=== PATIENT | male | born 1935 | race Caucasian/White ===

== ENCOUNTER 2021-11-02 12:35 | Emergency (ER) | payer MEDICARE, OTHER ==
[~2021-11-02] VITALS: Ht 185.4 cm; Wt 75.0 kg
[2021-11-02 12:38] VITALS: BP 131/64
[2021-11-02] MEDS ORDERED: normal saline 1000ML IV soln IVB ONE (12:55)
[2021-11-02 13:29] LABS: BASOPHILS % (AUTO) 0.2 % (0-1); EOSINOPHILS % (AUTO) 0 % (0-6); HEMATOCRIT 41.8 % (42.0-52.0); LYMPHOCYTES # (AUTO) 0.6 X10'3 (1.1-4.8); LYMPHOCYTES % (AUTO) 11.5 % (21-51); MEAN CORPUSCULAR HEMOGLOBIN 30.9 PG (27.0-31.0); MEAN CORPUSCULAR HGB CONC 33.4 g/dL (33.0-36.5); MEAN CORPUSCULAR VOLUME 92.6 FL (78-98); MEAN PLATELET VOLUME 7.5 FL (7.4-10.4); MONOCYTES # (AUTO) 0.6 X10'3 (0-0.9); MONOCYTES % (AUTO) 11.8 % (2-12); NEUTROPHILS % (AUTO) 76.5 % (42-75); PLATELET COUNT 157 X10'3 (140-440); RED BLOOD COUNT 4.52 X10'6 (4.70-6.10); RED CELL DISTRIBUTION WIDTH 12.8 % (11.5-14.5); WHITE BLOOD COUNT 5.3 X10'3 (4.5-11.0)
[2021-11-02 13:47] LABS: ALANINE AMINOTRANSFERASE 32 U/L (12-78); ALBUMIN 3.5 G/DL (3.4-5.0); ALBUMIN/GLOBULIN RATIO 0.9 (1.1-1.5); ALKALINE PHOSPHATASE 46 IU/L (46-116); ANION GAP 9 (8-16); ASPARTATE AMINO TRANSFERASE 22 U/L (10-37); BILIRUBIN,TOTAL 0.5 MG/DL (0.1-1.0); BLOOD UREA NITROGEN 22 MG/DL (7-18); CHLORIDE 103 MMOL/L (99-107); CREATININE 1.16 MG/DL (0.60-1.10); GLUCOSE 105 MG/DL (70-104); POTASSIUM 4.3 MMOL/L (3.5-5.1); SODIUM 142 MMOL/L (135-145); TOTAL PROTEIN 7.3 G/DL (6.4-8.2); eGFR 60 ML/MIN
[2021-11-02] MEDS ORDERED: SOTROVIMAB 500mg injection 500 MG in normal saline 100ml IV soln 100 ML IV ONE (13:50)
[2021-11-02 14:47] LABS: CLARITY,URINE CLEAR (Clear); COLOR,URINE YELLOW (Yellow); GLUCOSE, URINE NEGATIVE (Neg); KETONES,URINE NEGATIVE (Neg); LEUKOCYTE ESTERASE ,URINE NEGATIVE (Neg); NITRITES, URINE NEGATIVE (Neg); OCCULT BLOOD,URINE NEGATIVE (Neg); PH,URINE 5.5 (4.8-8.0); PROTEIN,URINE TRACE mg/dl (Neg); UROBILINOGEN,URINE 0.2 E.U/dL (0.2-1.0)
[2021-11-02 14:52] LABS: UA COLLECTION TYPE CLN CATCH MIDSTREAM
[2021-11-02 14:53] LABS: BACTERIA,URINE FEW /HPF (Neg); RBC,URINE NONE SEEN /HPF (0-2); WBC,URINE 0-4 /HPF (0-4)
[2021-11-02 14:54] LABS: COARSE GRANULAR CAST 0-3 /LPF (NEGATIVE); FINE GRANULAR CAST 0-3 /LPF (NEGATIVE); MUCUS STRANDS MANY /LPF (Neg); SQUAMOUS EPITHELIAL CELL,UR NONE SEEN /LPF (FEW)
== END 2021-11-02 16:22 | disposition home or self-care (01) ==
LOC: ER 12:37
DX: U07.1 COVID-19 (principal); R42 Dizziness and giddiness; R05.9 Cough, unspecified; R53.1 Weakness; E78.00 Pure hypercholesterolemia, unspecified; Z98.890 Other specified postprocedural states; Z88.6 Allergy status to analgesic agent; Z88.8 Allergy status to other drugs, medicaments and biological substances
CPT/HCPCS: 36415; 70450; 71045; 80053; 81001; 83605; 85025; 87040; 87635; 93005; 96360; 99285; C9803; J3490; J7030; M0247; Q0247

== ENCOUNTER 2022-11-15 21:14 | Emergency (ER) | payer MEDICARE, OTHER ==
[~2022-11-15] VITALS: Ht 182.9 cm; Wt 79.5 kg
[~2022-11-15 21:14] MED LIST: ASPI-611 PO
--- NOTE | 2022-11-15 22:42 | NUR ---
Procedure explained to tigist. Patient gave verbal consent; he is unable to sign R/T weakness.
[2022-11-15] MEDS ORDERED: propofol 10mg/ml 20ml vial IV STA (22:51)
[2022-11-16 00:26] VITALS: BP 133/73
--- NOTE | 2022-11-16 00:33 | NUR ---
[facility]
== END 2022-11-16 02:16 | disposition home or self-care (01) ==
LOC: ER 21:15
DX: M25.552 Pain in left hip (principal); E78.00 Pure hypercholesterolemia, unspecified; Z88.5 Allergy status to narcotic agent; Z88.6 Allergy status to analgesic agent
CPT/HCPCS: 27265; 73502; 94760; 99152; 99153; 99285; J7030

== ENCOUNTER 2022-11-18 05:36 | Inpatient (IN) | payer MEDICARE, OTHER ==
[~2022-11-18] VITALS: Ht 185.4 cm; Wt 100.0 kg
--- NOTE | 2022-11-18 07:25 | NUR ---
Condom cath placed
--- NOTE | 2022-11-18 07:40 | NUR ---
pt experiencing runs of 5-6 PVCs, monitor strip printed and Dr Rojas notified. No new orders. Will continue to monitor.
[2022-11-18 07:49] LABS: BASOPHILS # (AUTO) 0.1 X10'3 (0-0.2); BASOPHILS % (AUTO) 0.7 % (0-1); EOSINOPHILS # (AUTO) 0.1 X10'3 (0-0.9); EOSINOPHILS % (AUTO) 1.2 % (0-6); HEMATOCRIT 36.4 % (42.0-52.0); HEMOGLOBIN 11.9 g/dl (14.0-17.9); MEAN CORPUSCULAR HEMOGLOBIN 30.6 PG (27.0-31.0); MEAN CORPUSCULAR HGB CONC 32.7 g/dL (33.0-36.5); MEAN CORPUSCULAR VOLUME 93.6 FL (78-98); MEAN PLATELET VOLUME 7.2 FL (7.4-10.4); MONOCYTES # (AUTO) 0.7 X10'3 (0-0.9); MONOCYTES % (AUTO) 7.9 % (2-12); NEUTROPHILS # (AUTO) 6.8 X10'3 (1.8-7.7); NEUTROPHILS % (AUTO) 78.2 % (42-75); PLATELET COUNT 381 X10'3 (140-440); RED BLOOD COUNT 3.89 X10'6 (4.70-6.10); RED CELL DISTRIBUTION WIDTH 13.7 % (11.5-14.5); WHITE BLOOD COUNT 8.7 X10'3 (4.5-11.0)
[2022-11-18 07:59] LABS: APTT 27 SECONDS (22-32)
[2022-11-18 08:02] LABS: ALANINE AMINOTRANSFERASE 22 U/L (12-78); ALBUMIN 2.9 G/DL (3.4-5.0); ALBUMIN/GLOBULIN RATIO 0.8 (1.1-1.5); ALKALINE PHOSPHATASE 76 IU/L (46-116); ANION GAP 3 (8-16); ASPARTATE AMINO TRANSFERASE 21 U/L (10-37); BILIRUBIN,TOTAL 0.8 MG/DL (0.1-1.0); BLOOD UREA NITROGEN 14 MG/DL (7-18); BUN/CREATININE RATIO 17.9 (5.4-32.0); CALCIUM 8.9 MG/DL (8.5-10.1); CHLORIDE 104 MMOL/L (99-107); CREATININE 0.78 MG/DL (0.60-1.10); GLUCOSE 97 MG/DL (70-104); POTASSIUM 3.3 MMOL/L (3.5-5.1); SODIUM 142 MMOL/L (135-145); TOTAL CARBON DIOXIDE 35.1 MMOL/L (24-32); TOTAL PROTEIN 6.4 G/DL (6.4-8.2); eGFR > 90 ML/MIN
[2022-11-18 09:04] LABS: CLARITY,URINE CLEAR (Clear); COLOR,URINE YELLOW (Yellow); GLUCOSE, URINE NEGATIVE (Neg); KETONES,URINE NEGATIVE (Neg); LEUKOCYTE ESTERASE ,URINE NEGATIVE (Neg); NITRITES, URINE NEGATIVE (Neg); OCCULT BLOOD,URINE NEGATIVE (Neg); PH,URINE 6.5 (4.8-8.0); PROTEIN,URINE NEGATIVE (Neg); UA COLLECTION TYPE CLN CATCH MIDSTREAM
[2022-11-18] MEDS ORDERED: mag hydrox/Alum hydrox/simeth 30ml oral suspension PO PRN (11:30)
[2022-11-18] MEDS: dextrose 5%-1/2 normal saline 1,000 ML IV SCH ×2 (12:00→21:30)
--- NOTE | 2022-11-18 12:20 | NUR ---
gave fluids per order, did accucheck 91. Pt turned and linens changed from urine. condom cath was not on pt. Pt reports no pain, very sleepy. Answered that he his name with a J and his daughter heraclio. Pt left leg immobilizer in pain, heel elevated. room temp up, warm blankets, socks placed. Put pt back on monitors.
--- NOTE | 2022-11-18 12:28 | NUR ---
PAGE TO DR. BERMEO WITH UPDATE AND FOR DIET ORDER. PAGER ID: [phone] MESSAGE: ER BED #[id number]. PATIENT WILL BE GETTING BED ON SURGICAL UNIT. WE NEED DIET ORDER, PLEASE. THANK YOU, PILY EXT. [id number]
--- NOTE | 2022-11-18 13:30 | NUR ---
Patient in room ED 3. I have received report from Kristy in the ED and had the opportunity to ask questions and assume patient care.
--- NOTE | 2022-11-18 13:54 | NUR ---
NURSING VIVIANA EMERY CONFIRMED NO SURGERY TODAY. POSSIBLY TOMORROW. PT FAMILY RAFAEL UPDATED PT BEING MOVED TO SURGICAL FLOOR, GIVEN NUMBERS. SHE REPORTS AT REHAB PT BARELY TAKES TWO BITES OF FOOD OR DRINKS. PT SOMETIMES PT SAYS HES HUNGRY AND WANTS TO EAT. PT IS A FULL CODE.
--- NOTE | 2022-11-18 13:57 | NUR ---
CALLED DR. BERMEO. PUT PT ON FULL LIQUID DIET, AND NPO AFTER MIDNIGHT.
--- NOTE | 2022-11-18 14:01 | NUR ---
NOTIFIED DR. BERMEO THAT PT NOT GOING TO SURGERY TODAY BC THERE IS NO OR STAFF.
--- NOTE | 2022-11-18 14:29 | NUR ---
Patient arrived to the floor, tucked in. Spoke with OR charge, patient will go to OR tomorrow per surgeon.
[2022-11-18 14:30] VITALS: BP 135/74
--- NOTE | 2022-11-18 16:01 | NUR ---
PAGER ID: [phone] MESSAGE: Re: Arvin in 341, potassium of 3.3, would you like the protocol order? Vee
[2022-11-18] MEDS ORDERED: potassium Cl 20 mEq SR tablet PO STA (17:23)
[2022-11-18] MEDS ORDERED: NA P230E RC (17:31)
[2022-11-18] MEDS ORDERED: CHOL10005 PO (17:31)
[2022-11-18] MEDS ORDERED: BISA10SU60 RC (17:31)
[2022-11-18] MEDS ORDERED: DOCU100C40 PO (17:31)
[2022-11-18] MEDS ORDERED: LIDO700A32 TOP (17:32)
[2022-11-18] MEDS ORDERED: DRON10CA8 PO (17:35)
[2022-11-18] MEDS ORDERED: NIRM1TAB PO (17:35)
[2022-11-18] MEDS ORDERED: MAGN400O6 PO (17:35)
[2022-11-18] MEDS ORDERED: MULT-1085 PO (17:35)
[2022-11-18] MEDS ORDERED: ONDA-103 PO (17:35)
[2022-11-18] MEDS ORDERED: MELA5CAP PO (17:35)
[2022-11-18] MEDS ORDERED: ZINC50CA2 PO (17:38)
[2022-11-18] MEDS ORDERED: SENN-263 PO (17:38)
[2022-11-18] MEDS ORDERED: SCOP1PAT11 TOP (17:38)
[2022-11-18] MEDS ORDERED: TRAM50TA2 PO (17:38)
[2022-11-18] MEDS ORDERED: [UNRECOGNIZED DRUG - CODE] IV (17:38)
[2022-11-18 18:00] VITALS: BP 145/72
--- NOTE | 2022-11-18 18:21 | NUR ---
Problems reprioritized. Patient report given, questions answered & plan of care reviewed with Christel Trinidad
--- NOTE | 2022-11-18 19:00 | NUR ---
Paged Dr. Kennedy for sitter orders, she cld back and gave order for sitter
[2022-11-18] MEDS: docusate sod 100mg capsule PO SCH (21:23)
[2022-11-18 22:00] VITALS: BP 147/76
--- NOTE | 2022-11-18 23:44 | NUR ---
Student Medication Administration: For this medication-pass time frame, all medication were reviewed, dispensed, administered and documented per hospital policy by Guero STUBBS [facility].
--- NOTE | 2022-11-19 00:53 | NUR ---
Patient agitated, restless and combative at times. I paged Dr. Kennedy and she advised me to give him Ativan 1mg IV now.
[2022-11-19] MEDS ORDERED: LORazepam 2 mg/ml vial IV ONE (01:00)
[2022-11-19] MEDS: dextrose 5%-1/2 normal saline 1,000 ML IV SCH ×3 (01:23→21:53)
[2022-11-19 06:00] VITALS: BP 129/64
--- NOTE | 2022-11-19 06:05 | NUR ---
Problems reprioritized. Patient report given, questions answered & plan of care reviewed with CHRIS Baxter.
--- NOTE | 2022-11-19 06:31 | NUR ---
Patient in room [facility] 341. I have received report from Christel Trinidad and had the opportunity to ask questions and assume patient care.
[2022-11-19 07:37] LABS: BASOPHILS % (AUTO) 0.2 % (0-1); EOSINOPHILS # (AUTO) 0.1 X10'3 (0-0.9); EOSINOPHILS % (AUTO) 1.9 % (0-6); HEMATOCRIT 35.2 % (42.0-52.0); HEMOGLOBIN 11.6 g/dl (14.0-17.9); LYMPHOCYTES % (AUTO) 13.2 % (21-51); MEAN CORPUSCULAR HEMOGLOBIN 30.7 PG (27.0-31.0); MEAN CORPUSCULAR HGB CONC 32.8 g/dL (33.0-36.5); MEAN CORPUSCULAR VOLUME 93.6 FL (78-98); MONOCYTES # (AUTO) 0.7 X10'3 (0-0.9); MONOCYTES % (AUTO) 9.5 % (2-12); NEUTROPHILS # (AUTO) 5.9 X10'3 (1.8-7.7); NEUTROPHILS % (AUTO) 75.2 % (42-75); PLATELET COUNT 332 X10'3 (140-440); RED BLOOD COUNT 3.77 X10'6 (4.70-6.10); RED CELL DISTRIBUTION WIDTH 13.5 % (11.5-14.5); WHITE BLOOD COUNT 7.8 X10'3 (4.5-11.0)
[2022-11-19 07:41] LABS: ALBUMIN 2.5 G/DL (3.4-5.0); ANION GAP 2 (8-16); BLOOD UREA NITROGEN 8 MG/DL (7-18); BUN/CREATININE RATIO 10.8 (5.4-32.0); CALCIUM 8.6 MG/DL (8.5-10.1); CHLORIDE 106 MMOL/L (99-107); CREATININE 0.74 MG/DL (0.60-1.10); GLUCOSE 121 MG/DL (70-104); POTASSIUM 3.9 MMOL/L (3.5-5.1); SODIUM 142 MMOL/L (135-145); TOTAL CARBON DIOXIDE 34.4 MMOL/L (24-32); eGFR > 90 ML/MIN
[2022-11-19] MEDS: docusate sod 100mg capsule PO SCH ×2 (08:00→21:53)
--- NOTE | 2022-11-19 10:00 | NUR ---
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 Currently on full liquids diet 100% milk only first meal last night per EMR. Pt AOx1/confused w/ sitter reports wt loss but no wt amount w/ decreased intake per RN Malnutrition Screen. Pt w/ mild weakness, no edema, pending scaled wt this admit w/ current reported wt 100kg yet prior reported wts 80kg consistently past two visits4 days ago and last month in EMR. At this time pt lacks minimum malnutrition criteria. SHANTAL recommends ACTUARIAL ASSOCIATE BSS this admit given pt hx w/ ALOC-MD notified. Addendum: 11/19/22 at [address] Amended: Links added.
--- NOTE | 2022-11-19 13:48 | NUR ---
Student documentation:[facility] student Luis Antonio I have reviewed and agree with all interventions, assessments performed and medication administration per hospital policy and documented by Renata
[2022-11-19] MEDS: morphine 2 MG/ML inj. syringe IV PRN ×2 (17:48→21:52)
[2022-11-19 18:00] VITALS: BP 156/70
--- NOTE | 2022-11-19 18:32 | NUR ---
Problems reprioritized. Patient report given, questions answered & plan of care reviewed with Geornimo.
--- NOTE | 2022-11-19 18:40 | NUR ---
daughter Yessi [phone] updated on patient condition and that surgery is scheduled for tomorrow at 1200. daughter states pt has had very sore teeth since his fall. front teeth may be loose.
[2022-11-19] MEDS: ondansetron/PF 4mg/2ml inj IV PRN (21:51)
[2022-11-19 22:00] VITALS: BP 112/55
[2022-11-20] VITALS (15 sets, daily range): BP systolic 98–159; BP diastolic 47–81
[2022-11-20] MEDS: ondansetron/PF 4mg/2ml inj IV PRN ×2 (04:13→19:30)
[2022-11-20] MEDS: morphine 2 MG/ML inj. syringe IV PRN ×3 (04:14→19:23)
--- NOTE | 2022-11-20 04:40 | NUR ---
pre op wash complete. pt's hair washed, linen changed. chlorhex wipes done. scd's on. fall risk, allergy and DNR band on right ankle. name band on right arm.
--- NOTE | 2022-11-20 06:04 | NUR ---
reported to days. noted pre op EKG ordered and patient scheduled for 1200 surgery. sitter at bedside. morphine effective for pain. pat able to give birthdate.
--- NOTE | 2022-11-20 07:00 | NUR ---
Patient in room [facility]. I have received report from Geronimo PEREZ and had the opportunity to ask questions and assume patient care.
[2022-11-20 07:10] LABS: BASOPHILS % (AUTO) 0.2 % (0-1); EOSINOPHILS # (AUTO) 0.1 X10'3 (0-0.9); EOSINOPHILS % (AUTO) 1.8 % (0-6); HEMATOCRIT 35.2 % (42.0-52.0); HEMOGLOBIN 11.7 g/dl (14.0-17.9); LYMPHOCYTES % (AUTO) 13.4 % (21-51); MEAN CORPUSCULAR HGB CONC 33.2 g/dL (33.0-36.5); MEAN CORPUSCULAR VOLUME 93.1 FL (78-98); MEAN PLATELET VOLUME 7.2 FL (7.4-10.4); MONOCYTES # (AUTO) 0.6 X10'3 (0-0.9); MONOCYTES % (AUTO) 8.5 % (2-12); NEUTROPHILS # (AUTO) 5.5 X10'3 (1.8-7.7); NEUTROPHILS % (AUTO) 76.1 % (42-75); PLATELET COUNT 330 X10'3 (140-440); RED BLOOD COUNT 3.78 X10'6 (4.70-6.10); RED CELL DISTRIBUTION WIDTH 13.5 % (11.5-14.5); WHITE BLOOD COUNT 7.3 X10'3 (4.5-11.0)
[2022-11-20 07:38] LABS: ALBUMIN 2.5 G/DL (3.4-5.0); ANION GAP 2 (8-16); BLOOD UREA NITROGEN 8 MG/DL (7-18); BUN/CREATININE RATIO 10.8 (5.4-32.0); CALCIUM 8.5 MG/DL (8.5-10.1); CHLORIDE 105 MMOL/L (99-107); CREATININE 0.74 MG/DL (0.60-1.10); GLUCOSE 117 MG/DL (70-104); POTASSIUM 3.2 MMOL/L (3.5-5.1); SODIUM 140 MMOL/L (135-145); TOTAL CARBON DIOXIDE 32.6 MMOL/L (24-32); eGFR > 90 ML/MIN
[2022-11-20] MEDS: docusate sod 100mg capsule PO SCH ×2 (08:00→20:00)
[2022-11-20] MEDS ORDERED: sevoflurane 250ml liquid IH ONE (13:04)
[2022-11-20] MEDS ORDERED: ceFAZolin 2gm in dextrose, iso 2,000 MG/50 ML BAG IV ONE (13:04)
[2022-11-20] MEDS ORDERED: propofol inj 20 ML IV ONE (13:11)
[2022-11-20] MEDS ORDERED: rocuronium 10mg/ml inj IV ONE (13:11)
[2022-11-20] MEDS ORDERED: fentaNYL /PF 50mcg/ml 5ml ampule ONE (13:11)
[2022-11-20] MEDS ORDERED: ceFAZolin 1000mg inj ONE ×2 (13:23→13:25)
[2022-11-20] MEDS: dextrose 5%-1/2 normal saline 1,000 ML IV SCH ×2 (13:30→23:08)
[2022-11-20] MEDS ORDERED: vancomycin 1,000mg inj ONE ×2 (13:30→13:38)
[2022-11-20] MEDS ORDERED: ePHEDrine 50MG/ML INJ. ONE (13:44)
[2022-11-20] MEDS ORDERED: morphine 2 MG/ML inj. syringe IV PRN (13:50)
[2022-11-20] MEDS ORDERED: ringers solution, lacted 1,000 ML IV SCH (13:50)
[2022-11-20] MEDS ORDERED: ondansetron/PF 4mg/2ml inj IV PRN (13:50)
[2022-11-20] MEDS ORDERED: meperidine/PF 25mg/ml syringe IV PRN ×3 (13:50)
[2022-11-20] MEDS ORDERED: proCHLORperazine 10 MG/2 ml inj IV PRN (13:50)
[2022-11-20] MEDS ORDERED: morphine 4 MG/ML inj SYRINge IV PRN (13:50)
[2022-11-20] MEDS ORDERED: cloNIDine hcl/PF 100mcg/ml inj ONE (13:51)
[2022-11-20] MEDS ORDERED: epiNEPHrine 1 mg/ml inj ONE (13:51)
[2022-11-20] MEDS ORDERED: ROPIVAcaine 0.5% (5mg/ml) 30ml vial ONE (13:51)
[2022-11-20] MEDS ORDERED: ketorolac trometh. 30mg/ml inj. ONE (13:51)
[2022-11-20] MEDS ORDERED: sugammadex 200mg/2ml injection IV ONE (14:50)
--- NOTE | 2022-11-20 15:02 | NUR ---
Received from OR via ORTHO BED , accompanied by Anesthesiologist TORIBIO and report given by Anesthesiolgist. PATIENT WITH 20G PIV IN RIGHT UE RUNNING LR AT 100. DRESSING PRESNT TO LEFT HIP THAT IS CDI. + DP ON PALPATION. 10L MASK ON WITH 100% SATURATIONS. SCDS DONNED BILATERALLY Addendum: 11/20/22 at 1518 by Gregory Sandoval RN, RN Amended: Links added.
--- NOTE | 2022-11-20 15:52 | NUR ---
Report called to receiving nurse. Transferred via SURGICAL BED WITH NO Belongings. Special Issues communicated to receiving nurse LIZET PEREZ.PATIENT BACK IN ROOM 341 SAFELY. PATIENT PLACED ON FREQUENT VS AND RESOURCE ECONOMIST SOON ARRIVED TO BE WITH PATIENT HE IS SEVERELY DEMENTED. CALL LIGHT POSITIONED ON PATIENT REGARDLESS. TV ON AND BED LOW. DRESSING CDI. Addendum: 11/20/22 at 1614 by Gregory Sandoval RN RN Amended: Links added.
[2022-11-20] MEDS ORDERED: potassium Cl 20 mEq SR tablet PO STA (18:34)
--- NOTE | 2022-11-20 18:37 | NUR ---
Problems reprioritized. Patient report given, questions answered & plan of care reviewed with ALMAZ PEREZ.
--- NOTE | 2022-11-20 20:41 | NUR ---
noted left leg (surgery leg) is cool, pulse 1 + while right leg has bounding pedal pulse and is warm. will reposition brace and continue to monitor.
--- NOTE | 2022-11-20 21:30 | NUR ---
pedal pulse intact. posterior tibial bounding on left leg intact.
[2022-11-20] MEDS ORDERED: VANCOMYCIN 1,500MG inj. 1,500 MG in normal saline 500ml IV soln 300 ML IV ONE (23:00)
[2022-11-21 01:00] VITALS: BP 99/47
--- NOTE | 2022-11-21 01:30 | NUR ---
voided 50ml. bladder scan found 166ml. will continue to monitor
[2022-11-21] MEDS: potassium Cl 20mEq in NS 1,000 ML IV SCH ×2 (01:50→17:03)
[2022-11-21] MEDS: ondansetron/PF 4mg/2ml inj IV PRN (02:55)
[2022-11-21] MEDS: morphine 2 MG/ML inj. syringe IV PRN ×3 (02:55→15:26)
--- NOTE | 2022-11-21 03:00 | NUR ---
CSM's intact. noted post tib pulse intact, foot warming up. no drainage on dressing.
--- NOTE | 2022-11-21 06:00 | NUR ---
reported to days. noted pt resting w/o distress. ready for PT. immobilizer intact
[2022-11-21 06:56] LABS: BASOPHILS % (AUTO) 0.3 % (0-1); EOSINOPHILS # (AUTO) 0.1 X10'3 (0-0.9); EOSINOPHILS % (AUTO) 1.1 % (0-6); HEMOGLOBIN 9.4 g/dl (14.0-17.9); LYMPHOCYTES # (AUTO) 0.6 X10'3 (1.1-4.8); MEAN CORPUSCULAR HEMOGLOBIN 31.6 PG (27.0-31.0); MEAN CORPUSCULAR HGB CONC 33.7 g/dL (33.0-36.5); MEAN CORPUSCULAR VOLUME 93.6 FL (78-98); MEAN PLATELET VOLUME 7.3 FL (7.4-10.4); MONOCYTES # (AUTO) 0.6 X10'3 (0-0.9); MONOCYTES % (AUTO) 5.6 % (2-12); NEUTROPHILS # (AUTO) 9.1 X10'3 (1.8-7.7); PLATELET COUNT 237 X10'3 (140-440); RED BLOOD COUNT 2.99 X10'6 (4.70-6.10); RED CELL DISTRIBUTION WIDTH 13.6 % (11.5-14.5); WHITE BLOOD COUNT 10.4 X10'3 (4.5-11.0)
[2022-11-21 07:00] VITALS: BP 99/47
[2022-11-21 07:05] LABS: ALBUMIN 2.3 G/DL (3.4-5.0); ANION GAP 3 (8-16); BLOOD UREA NITROGEN 11 MG/DL (7-18); BUN/CREATININE RATIO 10.9 (5.4-32.0); CALCIUM 8.1 MG/DL (8.5-10.1); CHLORIDE 106 MMOL/L (99-107); CREATININE 1.01 MG/DL (0.60-1.10); GLUCOSE 117 MG/DL (70-104); POTASSIUM 3.6 MMOL/L (3.5-5.1); SODIUM 141 MMOL/L (135-145); TOTAL CARBON DIOXIDE 32.3 MMOL/L (24-32); eGFR 70 ML/MIN
[2022-11-21] MEDS: docusate sod 100mg capsule PO SCH ×2 (08:00→19:32)
[2022-11-21] MEDS ORDERED: LIDOcaine 2% 10ml TOPICAL JELLY (Urojet) TP ONE (08:50)
[2022-11-21 11:54] VITALS: BP 116/68
[2022-11-21 18:00] VITALS: BP 88/61
--- NOTE | 2022-11-21 18:25 | NUR ---
Problems reprioritized. Patient report given, questions answered & plan of care reviewed with CHRIS Loyola.
[2022-11-21] MEDS: enoxaparin 40mg/0.4ml syringe SUBCUT SCH (19:31)
--- NOTE | 2022-11-21 20:30 | NUR ---
Catherine notified RN the patient is combative, pulling at his mccollum and not following instructions. An order for restraints was obtained and placed on the patient. Also, pain medication was administered if the patient is unable to articulate his needs. Follow up planned along with frequent monitoring. IVF continue without interruption.
--- NOTE | 2022-11-21 21:33 | NUR ---
PT COMBATIVE WHEN NURSES AIDE TRIED TO STOP HIM FROM PULLING HIS MELGAR CATHETER OUT. BILAT WRIST RESTRAINTS FOR PATIENT AND STAFF SAFETY.
--- NOTE | 2022-11-21 21:52 | NUR ---
After being restrained and administration of pain medication, the patient is more relaxed, less aggressive; lying in bed with his eyes closed. No s/s of distress noted.
[2022-11-21 22:00] VITALS: BP 91/67
[2022-11-22] MEDS: morphine 2 MG/ML inj. syringe IV PRN ×3 (02:23→11:38)
[2022-11-22] MEDS: potassium Cl 20mEq in NS 1,000 ML IV SCH ×2 (03:35→07:33)
[2022-11-22 05:00] VITALS: BP 129/57
[2022-11-22] MEDS: docusate sod 100mg capsule PO SCH ×2 (08:00→19:53)
[2022-11-22 08:03] LABS: BASOPHILS % (AUTO) 0.6 % (0-1); EOSINOPHILS # (AUTO) 0.2 X10'3 (0-0.9); HEMATOCRIT 27.6 % (42.0-52.0); HEMOGLOBIN 8.9 g/dl (14.0-17.9); LYMPHOCYTES # (AUTO) 0.5 X10'3 (1.1-4.8); LYMPHOCYTES % (AUTO) 5.8 % (21-51); MEAN CORPUSCULAR HEMOGLOBIN 30.4 PG (27.0-31.0); MEAN CORPUSCULAR HGB CONC 32.2 g/dL (33.0-36.5); MEAN CORPUSCULAR VOLUME 94.4 FL (78-98); MEAN PLATELET VOLUME 7.4 FL (7.4-10.4); MONOCYTES # (AUTO) 0.6 X10'3 (0-0.9); MONOCYTES % (AUTO) 7.1 % (2-12); NEUTROPHILS % (AUTO) 83.5 % (42-75); PLATELET COUNT 203 X10'3 (140-440); RED BLOOD COUNT 2.92 X10'6 (4.70-6.10); RED CELL DISTRIBUTION WIDTH 13.8 % (11.5-14.5); WHITE BLOOD COUNT 8.4 X10'3 (4.5-11.0)
[2022-11-22 08:13] LABS: ALBUMIN 2.2 G/DL (3.4-5.0); ANION GAP 4 (8-16); BLOOD UREA NITROGEN 10 MG/DL (7-18); CALCIUM 8.5 MG/DL (8.5-10.1); CHLORIDE 108 MMOL/L (99-107); CREATININE 0.77 MG/DL (0.60-1.10); GLUCOSE 102 MG/DL (70-104); POTASSIUM 3.7 MMOL/L (3.5-5.1); SODIUM 143 MMOL/L (135-145); TOTAL CARBON DIOXIDE 30.8 MMOL/L (24-32); eGFR > 90 ML/MIN
[2022-11-22 10:00] VITALS: BP 110/52
[2022-11-22 11:07] LABS: % IRON SATURATION 8 % (11-46); IRON 9 UG/DL (53-167); TOTAL IRON BINDING CAPACITY 115 UG/DL (259-388)
--- NOTE | 2022-11-22 13:11 | NUR ---
ELEVATOR CONDUCTOR documentation: I have reviewed and agree with all interventions, assessments performed and documented by Wendy Carlson LVN.
[2022-11-22] MEDS ORDERED: iron sucrose complex injection 500 MG in normal saline 250ml IV soln 250 ML IV ONE (16:15)
[2022-11-22 18:00] VITALS: BP 146/79
[2022-11-22] MEDS: enoxaparin 40mg/0.4ml syringe SUBCUT SCH (20:25)
[2022-11-22 22:00] VITALS: BP 135/66
[2022-11-23] MEDS: morphine 2 MG/ML inj. syringe IV PRN ×2 (03:17→08:36)
--- NOTE | 2022-11-23 06:45 | NUR ---
Patient in room [facility] 341. I have received report from Milla RN and had the opportunity to ask questions and assume patient care.
[2022-11-23 06:59] VITALS: BP 123/66
[2022-11-23 07:01] LABS: BASOPHILS % (AUTO) 0.3 % (0-1); EOSINOPHILS # (AUTO) 0.1 X10'3 (0-0.9); EOSINOPHILS % (AUTO) 1.4 % (0-6); HEMATOCRIT 24.7 % (42.0-52.0); HEMOGLOBIN 8.3 g/dl (14.0-17.9); LYMPHOCYTES # (AUTO) 0.6 X10'3 (1.1-4.8); LYMPHOCYTES % (AUTO) 7.4 % (21-51); MEAN CORPUSCULAR HEMOGLOBIN 31.3 PG (27.0-31.0); MEAN CORPUSCULAR HGB CONC 33.7 g/dL (33.0-36.5); MEAN CORPUSCULAR VOLUME 92.9 FL (78-98); MEAN PLATELET VOLUME 7.4 FL (7.4-10.4); MONOCYTES # (AUTO) 0.7 X10'3 (0-0.9); MONOCYTES % (AUTO) 8.4 % (2-12); NEUTROPHILS # (AUTO) 6.8 X10'3 (1.8-7.7); NEUTROPHILS % (AUTO) 82.5 % (42-75); PLATELET COUNT 185 X10'3 (140-440); RED BLOOD COUNT 2.66 X10'6 (4.70-6.10); RED CELL DISTRIBUTION WIDTH 13.7 % (11.5-14.5); WHITE BLOOD COUNT 8.3 X10'3 (4.5-11.0)
[2022-11-23 07:09] LABS: D-DIMER 2.59 MG/L FEU (0-0.50)
[2022-11-23 07:21] LABS: ALBUMIN 2.1 G/DL (3.4-5.0); ANION GAP 5 (8-16); BLOOD UREA NITROGEN 9 MG/DL (7-18); BUN/CREATININE RATIO 12.9 (5.4-32.0); CALCIUM 8.4 MG/DL (8.5-10.1); CHLORIDE 109 MMOL/L (99-107); GLUCOSE 92 MG/DL (70-104); POTASSIUM 3.5 MMOL/L (3.5-5.1); SODIUM 145 MMOL/L (135-145); TOTAL CARBON DIOXIDE 31.5 MMOL/L (24-32); eGFR > 90 ML/MIN
[2022-11-23] MEDS: docusate sod 100mg capsule PO SCH ×4 (08:00→20:15)
[2022-11-23] MEDS: magnesium hydroxide 30ml (MOM) UD suspension PO PRN ×2 (08:35→08:47)
[2022-11-23] MEDS: potassium Cl 20mEq in NS 1,000 ML IV SCH ×2 (08:36→23:59)
[2022-11-23] MEDS: enoxaparin 40mg/0.4ml syringe SUBCUT SCH ×2 (08:55→20:00)
[2022-11-23] MEDS ORDERED: morphine 2 MG/ML inj. syringe IV ONE ×2 (11:00)
[2022-11-23] MEDS: dexamethasone 4mg/ml inj IV SCH (11:04)
[2022-11-23 12:14] VITALS: BP 132/82
--- NOTE | 2022-11-23 14:37 | NUR ---
Initial: Pt admit DX recurrent L hip dislocation s/p OR for repair, COVID-19, SIRS, and hx dementia per EMR. Pt PO 0-25% majority of meals despite feeder w/ max assistance not meeting needs. Currently on 2L NC though AOx1/confused in BUE restraints per EMR; ALOC likely impacting PO trends. LBM 3/6 pt refusing both routine and PRN bowel regimen attempts this admit per EMR w/ poor meal intake not assisting BM. RD attempted to contact RN via TC regarding pt liquid intake acceptance however unable; recommend Ensure Plus High Protein TIDWM-DO notified. If poor PO persists pt would benefit from EN for nutrition repletion post-op. Will monitor for further nutrition intervention needs this admit. Rec: 1. continue regular/MM5/thin diet w/ feeder per CASUALTY UNDERWRITER/MD recs; encourage PO 2. Ensure Plus High Protein TIDWM; pending physician verification in EMR 3. IF pt poor PO persists and within POC would benefit from EN nutrition support for nutrition repletion; IF TF Vital AF at 60ml/hr 4. routine bowel regimen; encourage pt compliance. Refusing meds w/ no BM 6 days 5. scaled wt this admit; subsequent weekly wts Addendum: 11/23/22 at [address] Amended: Links added.
[2022-11-23 18:00] VITALS: BP 153/71
[2022-11-23] MEDS: LACTOSE-REDUCED FOOD 237ML LIQUID PO SCH (18:22)
--- NOTE | 2022-11-23 18:22 | NUR ---
Problems reprioritized. Patient report given, questions answered & plan of care reviewed with Dylan ESPINOZA.
[2022-11-23] MEDS: LORazepam 0.5 MG tablet PO PRN (20:16)
[2022-11-23] MEDS: traMADol 50MG tablet PO PRN (21:31)
[2022-11-23 22:00] VITALS: BP 135/74
[2022-11-24] MEDS: enoxaparin 40mg/0.4ml syringe SUBCUT SCH ×3 (00:28→22:31)
--- NOTE | 2022-11-24 01:28 | NUR ---
AGREE WITH PARAOPTOMETRIC PHYSICAL ASSESSMENT CHARTED.
[2022-11-24] MEDS: traMADol 50MG tablet PO PRN ×3 (04:48→17:02)
[2022-11-24 06:00] VITALS: BP 128/70
[2022-11-24] MEDS: LACTOSE-REDUCED FOOD 237ML LIQUID PO SCH ×3 (08:00→18:30)
[2022-11-24] MEDS: LORazepam 0.5 MG tablet PO PRN ×2 (08:19→18:46)
[2022-11-24] MEDS: docusate sod 100mg capsule PO SCH ×2 (08:19→22:31)
[2022-11-24] MEDS: dexamethasone 4mg/ml inj IV SCH (08:19)
[2022-11-24 08:21] LABS: BASOPHILS % (AUTO) 0.4 % (0-1); EOSINOPHILS % (AUTO) 0.3 % (0-6); HEMATOCRIT 26.3 % (42.0-52.0); HEMOGLOBIN 8.8 g/dl (14.0-17.9); LYMPHOCYTES # (AUTO) 0.6 X10'3 (1.1-4.8); LYMPHOCYTES % (AUTO) 8.8 % (21-51); MEAN CORPUSCULAR HEMOGLOBIN 31.3 PG (27.0-31.0); MEAN CORPUSCULAR HGB CONC 33.4 g/dL (33.0-36.5); MEAN CORPUSCULAR VOLUME 93.6 FL (78-98); MEAN PLATELET VOLUME 7.3 FL (7.4-10.4); MONOCYTES # (AUTO) 0.6 X10'3 (0-0.9); MONOCYTES % (AUTO) 8.3 % (2-12); NEUTROPHILS # (AUTO) 5.7 X10'3 (1.8-7.7); NEUTROPHILS % (AUTO) 82.2 % (42-75); PLATELET COUNT 203 X10'3 (140-440); RED BLOOD COUNT 2.81 X10'6 (4.70-6.10); RED CELL DISTRIBUTION WIDTH 13.6 % (11.5-14.5); WHITE BLOOD COUNT 6.9 X10'3 (4.5-11.0)
[2022-11-24 08:33] LABS: ALBUMIN 2.3 G/DL (3.4-5.0); ANION GAP 8 (8-16); BLOOD UREA NITROGEN 14 MG/DL (7-18); BUN/CREATININE RATIO 20.6 (5.4-32.0); C-REACTIVE PROTEIN 6.63 MG/DL (0.0-0.5); CALCIUM 8.9 MG/DL (8.5-10.1); CHLORIDE 109 MMOL/L (99-107); CREATININE 0.68 MG/DL (0.60-1.10); GLUCOSE 114 MG/DL (70-104); POTASSIUM 3.8 MMOL/L (3.5-5.1); SODIUM 146 MMOL/L (135-145); TOTAL CARBON DIOXIDE 29.5 MMOL/L (24-32); eGFR > 90 ML/MIN
[2022-11-24] MEDS: potassium Cl 20mEq in NS 1,000 ML IV SCH ×2 (08:55→22:39)
--- NOTE | 2022-11-24 09:04 | NUR ---
Dylan Consult: Davin Richardson 12 w/ L hip surgical wound otherwise skin intact per EMR. Addendum: 11/24/22 at [address] Amended: Links added.
[2022-11-24 09:57] LABS: D-DIMER 2.94 MG/L FEU (0-0.50)
[2022-11-24 11:00] VITALS: BP 128/70
--- NOTE | 2022-11-24 12:16 | NUR ---
PRESSURE ULCER EDUCATION: DEFINITION: A pressure ulcer is an area of skin that breaks down when you stay in one position too long. The constant pressure against the skin reduces the blood flow to that area and the affected tissue dies. CAUSES: "Being bedridden or in a wheelchair "Fragile skin "Having a chronic condition, such as diabetes or vascular disease "Inability to move certain parts of your body without assistance "Older age "Incontinence of urine or stool SYMPTOMS: "A reddened area that DOES NOT turn white when pressed on - this can be the beginning of a pressure ulcer "A blister, deep sore or a crater - these can be advanced pressure ulcers FIRST AID: "Relieve the pressure on this area "Keep the area clean and dry "Call your primary doctor if you see any of the above symptoms "DO NOT massage the area "DO NOT use a donut shaped or ring shaped pillow- these actually interfere with the blood flow and cause complications PREVENTION: "Check for pressure ulcers everyday "Change position at least every two hours to relieve pressure "Use items that help relieve pressure- pillows, sheepskin, foam padding, and powders. "Keep skin clean and dry "Eat healthy well balanced meals "Exercise daily IF YOU SEE ANY OF THESE SYMPTOMS WHILE IN THE HOSPITAL - TELL YOUR NURSE IMMEDIATELY. IF YOU SEE ANY OF THESE SYMPTOMS WHILE AT HOME OR HAVE ANY QUESTIONS OR CONCERNS ABOUT PRESSURE ULCERS - CALL YOUR PRIMARY DOCTOR IMMEDIATELY. Addendum: 11/24/22 at 1216 by Gaby Mccall RN Amended: Links added.
--- NOTE | 2022-11-24 17:43 | NUR ---
PAGER ID: [phone] MESSAGE: [phone] Randall Sheridan Can I get a suppository for the patient. Tami [phone]
[2022-11-24] MEDS ORDERED: bisacodyl 10mg suppository rectal RC STA (17:48)
[2022-11-24] MEDS ORDERED: bisacodyl 10mg suppository rectal RC PRN (17:50)
--- NOTE | 2022-11-24 18:26 | NUR ---
restraints off all day, patient tolerated. Addendum: 11/24/22 at 1826 by Tami Navarro RN Amended: Links added.
[2022-11-24 18:30] VITALS: BP 141/67
--- NOTE | 2022-11-24 18:31 | NUR ---
Problems reprioritized. Patient report given, questions answered & plan of care reviewed with Bree PEREZ.
[2022-11-24 22:00] VITALS: BP 152/76
[2022-11-24] MEDS: lactulose 20gm/30ml cup PO SCH (22:32)
[2022-11-25] MEDS: lactulose 20gm/30ml cup PO SCH ×3 (03:00→15:36)
--- NOTE | 2022-11-25 03:00 | NUR ---
PT REFUSES ANY MEDICATION. REFUSES ANY PO, SPITS OUT WHEN GIVEN. Addendum: 11/25/22 at 0301 by Amy Zuluaga RN Amended: Links added.
[2022-11-25] MEDS: morphine 2 MG/ML inj. syringe IV PRN (05:09)
--- NOTE | 2022-11-25 06:45 | NUR ---
Problems reprioritized. Patient report given, questions answered & plan of care reviewed with CHRIS CORDOBA. Addendum: 11/25/22 at 0646 by Amy Zuluaga RN Amended: Links added.
[2022-11-25 07:00] VITALS: BP 131/81
[2022-11-25 07:06] LABS: D-DIMER 2.43 MG/L FEU (0-0.50)
[2022-11-25 07:08] LABS: BASOPHILS % (AUTO) 0.3 % (0-1); EOSINOPHILS % (AUTO) 0.1 % (0-6); HEMATOCRIT 24.2 % (42.0-52.0); HEMOGLOBIN 8.1 g/dl (14.0-17.9); LYMPHOCYTES # (AUTO) 0.8 X10'3 (1.1-4.8); MEAN CORPUSCULAR HEMOGLOBIN 31.3 PG (27.0-31.0); MEAN CORPUSCULAR HGB CONC 33.5 g/dL (33.0-36.5); MEAN CORPUSCULAR VOLUME 93.5 FL (78-98); MEAN PLATELET VOLUME 7.3 FL (7.4-10.4); MONOCYTES # (AUTO) 0.7 X10'3 (0-0.9); MONOCYTES % (AUTO) 8.2 % (2-12); NEUTROPHILS # (AUTO) 6.6 X10'3 (1.8-7.7); NEUTROPHILS % (AUTO) 81.4 % (42-75); PLATELET COUNT 199 X10'3 (140-440); RED BLOOD COUNT 2.59 X10'6 (4.70-6.10); RED CELL DISTRIBUTION WIDTH 13.6 % (11.5-14.5); WHITE BLOOD COUNT 8.1 X10'3 (4.5-11.0)
[2022-11-25 07:13] LABS: ALBUMIN 2.3 G/DL (3.4-5.0); ANION GAP 0 (8-16); BLOOD UREA NITROGEN 16 MG/DL (7-18); BUN/CREATININE RATIO 22.5 (5.4-32.0); C-REACTIVE PROTEIN 3.47 MG/DL (0.0-0.5); CHLORIDE 110 MMOL/L (99-107); CREATININE 0.71 MG/DL (0.60-1.10); GLUCOSE 93 MG/DL (70-104); POTASSIUM 3.4 MMOL/L (3.5-5.1); SODIUM 144 MMOL/L (135-145); eGFR > 90 ML/MIN
[2022-11-25 07:37] LABS: CALCIUM 8.6 MG/DL (8.5-10.1)
[2022-11-25] MEDS: LACTOSE-REDUCED FOOD 237ML LIQUID PO SCH ×3 (08:00→18:00)
[2022-11-25] MEDS: enoxaparin 40mg/0.4ml syringe SUBCUT SCH ×2 (10:32→20:50)
[2022-11-25] MEDS: docusate sod 100mg capsule PO SCH ×2 (10:33→20:49)
[2022-11-25] MEDS: dexamethasone 4mg/ml inj IV SCH (10:33)
[2022-11-25] MEDS: traMADol 50MG tablet PO PRN (10:34)
[2022-11-25] MEDS: potassium Cl 20mEq in NS 1,000 ML IV SCH (10:56)
[2022-11-25 12:17] VITALS: BP 144/63
--- NOTE | 2022-11-25 16:25 | NUR ---
Paged Dr Levi ChristiansonB. Restraint order expires in ~1hour. We still need them please. Lindsay Fortune Addendum: 11/25/22 at 1722 by Lindsay Patricia RN Leroy Guthrie. Restraint order expires in ~1hour. We still need them please. Lindsay Fortune Addendum: 11/25/22 at 1723 by Lindsay Patricia RN Arvin Guthrie. Restraint order expires in 15 minutes. We still need them please. Lindsay Fortune
[2022-11-25 18:00] VITALS: BP_SYST 131; BP_SYST 136; BP_DIAS 65; BP_DIAS 81
[2022-11-26] MEDS: potassium Cl 20mEq in NS 1,000 ML IV SCH ×3 (00:23→22:15)
[2022-11-26 06:16] LABS: BASOPHILS % (AUTO) 0.1 % (0-1); EOSINOPHILS % (AUTO) 0.3 % (0-6); HEMATOCRIT 24.1 % (42.0-52.0); HEMOGLOBIN 8.2 g/dl (14.0-17.9); LYMPHOCYTES # (AUTO) 0.8 X10'3 (1.1-4.8); LYMPHOCYTES % (AUTO) 11.6 % (21-51); MEAN CORPUSCULAR HEMOGLOBIN 31.4 PG (27.0-31.0); MEAN CORPUSCULAR VOLUME 92.4 FL (78-98); MEAN PLATELET VOLUME 7.1 FL (7.4-10.4); MONOCYTES # (AUTO) 0.6 X10'3 (0-0.9); MONOCYTES % (AUTO) 9.5 % (2-12); NEUTROPHILS # (AUTO) 5.4 X10'3 (1.8-7.7); NEUTROPHILS % (AUTO) 78.5 % (42-75); PLATELET COUNT 197 X10'3 (140-440); RED BLOOD COUNT 2.61 X10'6 (4.70-6.10); RED CELL DISTRIBUTION WIDTH 13.7 % (11.5-14.5); WHITE BLOOD COUNT 6.8 X10'3 (4.5-11.0)
[2022-11-26 06:22] LABS: D-DIMER 2.61 MG/L FEU (0-0.50)
[2022-11-26 06:26] LABS: ALBUMIN 2.4 G/DL (3.4-5.0); ANION GAP 2 (8-16); BLOOD UREA NITROGEN 13 MG/DL (7-18); BUN/CREATININE RATIO 19.1 (5.4-32.0); C-REACTIVE PROTEIN 2.22 MG/DL (0.0-0.5); CALCIUM 8.4 MG/DL (8.5-10.1); CHLORIDE 107 MMOL/L (99-107); CREATININE 0.68 MG/DL (0.60-1.10); GLUCOSE 85 MG/DL (70-104); POTASSIUM 3.6 MMOL/L (3.5-5.1); SODIUM 142 MMOL/L (135-145); TOTAL CARBON DIOXIDE 33.5 MMOL/L (24-32); eGFR > 90 ML/MIN
--- NOTE | 2022-11-26 06:32 | NUR ---
Problems reprioritized. Patient report given, questions answered & plan of care reviewed with DEMETRIO PEREZ.
--- NOTE | 2022-11-26 06:44 | NUR ---
Patient in room HU[facility] 345. I have received report from Radha Garcia RN and had the opportunity to ask questions and assume patient care.
[2022-11-26] MEDS: docusate sod 100mg capsule PO SCH ×3 (08:00→22:14)
[2022-11-26] MEDS: LACTOSE-REDUCED FOOD 237ML LIQUID PO SCH ×3 (08:00→18:16)
[2022-11-26] MEDS: dexamethasone 4mg/ml inj IV SCH (08:48)
[2022-11-26] MEDS: enoxaparin 40mg/0.4ml syringe SUBCUT SCH ×2 (08:49→22:15)
[2022-11-26 11:00] VITALS: BP 147/72
[2022-11-26] MEDS: LORazepam 0.5 MG tablet PO PRN (13:10)
--- NOTE | 2022-11-26 14:33 | NUR ---
F/u 11/26: Pt PO remains poor LOS 8 days 0-25% w/ mostly refusing majority of meals and ONS not meeting needs. Pt remains ALOC w/ dementia AOx1/confused in BUE restraints w/ sitter per EMR likely influencing PO trends. Given 8 days poor intake, mild weakness, and LLE non-pitting edema pt meets minimum non-severe malnutrition criteria; MD notified. SHANTAL d/w RN and chiara FAJARDO regarding EN nutrition support via NG if within pt POC given malnutrition status. No response at this time; TF recs below in case to start. LBM 11/25 receiving routine colace per EMR. Will monitor for further nutrition intervention needs. Rec: 1. continue regular/MM5/thin diet w/ feeder per STONE SPLITTER/MD recs; encourage PO 2. Ensure Plus High Protein TIDWM; encourage PO 3. EN nutrition support for nutrition repletion via NG if within pt POC; IF TF Jevity 1.2 at 75ml/hr goal 4. IF TF; additional water flush 150ml Q4H; monitor serum Na 5. IF TF; PALB Q /, daily scaled wts 6. routine bowel regimen 7. scaled wt this admit; subsequent weekly wts Addendum: 11/26/22 at [address] Amended: Links added.
--- NOTE | 2022-11-26 15:36 | NUR ---
Orders from Dr Montesinos to dc FC, move pt nearer to the nsg station, and DC restraints. This nurse phoned for clarification re: mccollum that was placed for retention, and that currently there are no beds closer to station at this time. Dr Montesinos stated OK to move near station when beds allows and if pt is unable to void then to notify him for further orders.
--- NOTE | 2022-11-26 17:15 | NUR ---
Pt is still agitated. Taylor is DC per Dr Montesinos, as well as restrains. Pt Still has a sitter in the room, sleeping at the moment. When he wakes up, he is agitated and very confused. Dr Montesinos is aware. Taylor CHOWDHURY at 1700. Addendum: 11/26/22 at 1718 by Maddi Bryant RN Amended: Links added.
[2022-11-26 18:00] VITALS: BP 129/63
--- NOTE | 2022-11-26 18:19 | NUR ---
Problems reprioritized. Patient report given, questions answered & plan of care reviewed with Jennifer PEREZ.
--- NOTE | 2022-11-26 22:00 | NUR ---
Bladder scanned patient had 89 mls in bladder. Voided 200 ml since coming on cage shift manager.
--- NOTE | 2022-11-26 23:59 | NUR ---
Student documentation: I have reviewed interventions, assessments performed and documented by Ruby STUBBS [facility].
[2022-11-27 06:00] VITALS: BP 148/49
[2022-11-27 06:14] LABS: BASOPHILS % (AUTO) 0.1 % (0-1); EOSINOPHILS % (AUTO) 0.6 % (0-6); HEMATOCRIT 25.7 % (42.0-52.0); HEMOGLOBIN 8.5 g/dl (14.0-17.9); LYMPHOCYTES # (AUTO) 0.8 X10'3 (1.1-4.8); LYMPHOCYTES % (AUTO) 11.2 % (21-51); MEAN CORPUSCULAR HEMOGLOBIN 30.7 PG (27.0-31.0); MEAN CORPUSCULAR HGB CONC 32.9 g/dL (33.0-36.5); MEAN CORPUSCULAR VOLUME 93.4 FL (78-98); MEAN PLATELET VOLUME 7.4 FL (7.4-10.4); MONOCYTES # (AUTO) 0.6 X10'3 (0-0.9); MONOCYTES % (AUTO) 8.5 % (2-12); NEUTROPHILS # (AUTO) 5.5 X10'3 (1.8-7.7); NEUTROPHILS % (AUTO) 79.6 % (42-75); PLATELET COUNT 195 X10'3 (140-440); RED BLOOD COUNT 2.76 X10'6 (4.70-6.10); RED CELL DISTRIBUTION WIDTH 13.6 % (11.5-14.5)
--- NOTE | 2022-11-27 06:16 | NUR ---
Problems reprioritized. Patient report given, questions answered & plan of care reviewed with CHRIS ATKINSON.
[2022-11-27 06:25] LABS: ALBUMIN 2.6 G/DL (3.4-5.0); ANION GAP 4 (8-16); BLOOD UREA NITROGEN 12 MG/DL (7-18); BUN/CREATININE RATIO 19.4 (5.4-32.0); CALCIUM 8.4 MG/DL (8.5-10.1); CHLORIDE 103 MMOL/L (99-107); CREATININE 0.62 MG/DL (0.60-1.10); GLUCOSE 83 MG/DL (70-104); POTASSIUM 3.2 MMOL/L (3.5-5.1); SODIUM 139 MMOL/L (135-145); TOTAL CARBON DIOXIDE 31.9 MMOL/L (24-32); eGFR > 90 ML/MIN
[2022-11-27 06:43] LABS: D-DIMER 2.37 MG/L FEU (0-0.50)
--- NOTE | 2022-11-27 06:59 | NUR ---
Patient in room [facility] 345. I have received report from Jennifer PEREZ and had the opportunity to ask questions and assume patient care.
[2022-11-27] MEDS: LACTOSE-REDUCED FOOD 237ML LIQUID PO SCH ×3 (08:00→18:20)
[2022-11-27] MEDS: traMADol 50MG tablet PO PRN (09:29)
[2022-11-27] MEDS: docusate sod 100mg capsule PO SCH ×3 (09:29→21:32)
[2022-11-27] MEDS: enoxaparin 40mg/0.4ml syringe SUBCUT SCH ×2 (09:30→21:18)
[2022-11-27] MEDS: dexamethasone 4mg/ml inj IV SCH (09:32)
--- NOTE | 2022-11-27 14:33 | NUR ---
PRESSURE ULCER EDUCATION: DEFINITION: A pressure ulcer is an area of skin that breaks down when you stay in one position too long. The constant pressure against the skin reduces the blood flow to that area and the affected tissue dies. CAUSES: "Being bedridden or in a wheelchair "Fragile skin "Having a chronic condition, such as diabetes or vascular disease "Inability to move certain parts of your body without assistance "Older age "Incontinence of urine or stool SYMPTOMS: "A reddened area that DOES NOT turn white when pressed on - this can be the beginning of a pressure ulcer "A blister, deep sore or a crater - these can be advanced pressure ulcers FIRST AID: "Relieve the pressure on this area "Keep the area clean and dry "Call your primary doctor if you see any of the above symptoms "DO NOT massage the area "DO NOT use a donut shaped or ring shaped pillow- these actually interfere with the blood flow and cause complications PREVENTION: "Check for pressure ulcers everyday "Change position at least every two hours to relieve pressure "Use items that help relieve pressure- pillows, sheepskin, foam padding, and powders. "Keep skin clean and dry "Eat healthy well balanced meals "Exercise daily IF YOU SEE ANY OF THESE SYMPTOMS WHILE IN THE HOSPITAL - TELL YOUR NURSE IMMEDIATELY. IF YOU SEE ANY OF THESE SYMPTOMS WHILE AT HOME OR HAVE ANY QUESTIONS OR CONCERNS ABOUT PRESSURE ULCERS - CALL YOUR PRIMARY DOCTOR IMMEDIATELY. Addendum: 11/27/22 at 1434 by Trina Michael LVN Amended: Links added.
[2022-11-27] MEDS: potassium Cl 20mEq in NS 1,000 ML IV SCH (16:20)
[2022-11-27 18:00] VITALS: BP 135/64
--- NOTE | 2022-11-27 18:20 | NUR ---
Problems reprioritized. Patient report given, questions answered & plan of care reviewed with ward PEREZ.
[2022-11-27 21:13] VITALS: BP 141/71
[2022-11-27] MEDS: morphine 2 MG/ML inj. syringe IV PRN (21:17)
[2022-11-28 05:30] VITALS: BP 147/67
[2022-11-28] MEDS: potassium Cl 20mEq in NS 1,000 ML IV SCH ×2 (06:15→11:54)
--- NOTE | 2022-11-28 06:40 | NUR ---
Patient in room [facility] 345. I have received report from CHRIS Rodriguez and had the opportunity to ask questions and assume patient care.
--- NOTE | 2022-11-28 06:58 | NUR ---
Problems reprioritized. Patient report given, questions answered & plan of care reviewed with CHRIS DOUGHERTY.
[2022-11-28] MEDS: LACTOSE-REDUCED FOOD 237ML LIQUID PO SCH ×4 (07:57→14:00)
[2022-11-28 09:11] LABS: BASOPHILS % (AUTO) 0.2 % (0-1); EOSINOPHILS % (AUTO) 0.2 % (0-6); HEMATOCRIT 26.1 % (42.0-52.0); HEMOGLOBIN 8.8 g/dl (14.0-17.9); LYMPHOCYTES # (AUTO) 0.7 X10'3 (1.1-4.8); LYMPHOCYTES % (AUTO) 8.4 % (21-51); MEAN CORPUSCULAR HGB CONC 33.7 g/dL (33.0-36.5); MEAN CORPUSCULAR VOLUME 92.2 FL (78-98); MEAN PLATELET VOLUME 7.1 FL (7.4-10.4); MONOCYTES # (AUTO) 0.6 X10'3 (0-0.9); NEUTROPHILS % (AUTO) 84.2 % (42-75); PLATELET COUNT 197 X10'3 (140-440); RED BLOOD COUNT 2.83 X10'6 (4.70-6.10); RED CELL DISTRIBUTION WIDTH 14.1 % (11.5-14.5); WHITE BLOOD COUNT 8.4 X10'3 (4.5-11.0)
[2022-11-28 09:28] LABS: ALANINE AMINOTRANSFERASE 26 U/L (12-78); ALBUMIN 2.6 G/DL (3.4-5.0); ALBUMIN/GLOBULIN RATIO 0.8 (1.1-1.5); ALKALINE PHOSPHATASE 92 IU/L (46-116); ANION GAP 3 (8-16); ASPARTATE AMINO TRANSFERASE 23 U/L (10-37); BILIRUBIN,TOTAL 0.7 MG/DL (0.1-1.0); BLOOD UREA NITROGEN 10 MG/DL (7-18); CALCIUM 8.4 MG/DL (8.5-10.1); CHLORIDE 104 MMOL/L (99-107); GLUCOSE 85 MG/DL (70-104); MAGNESIUM 1.8 MG/DL (1.5-2.4); POTASSIUM 3.8 MMOL/L (3.5-5.1); SODIUM 140 MMOL/L (135-145)
[2022-11-28 09:30] LABS: BUN/CREATININE RATIO 15.9 (5.4-32.0); CREATININE 0.63 MG/DL (0.60-1.10); eGFR > 90 ML/MIN
[2022-11-28 10:00] VITALS: BP 120/64
[2022-11-28] MEDS: ondansetron/PF 4mg/2ml inj IV PRN (10:04)
[2022-11-28] MEDS: dexamethasone 4mg/ml inj IV SCH (10:08)
[2022-11-28] MEDS: morphine 2 MG/ML inj. syringe IV PRN (10:09)
[2022-11-28] MEDS: docusate sod 100mg capsule PO SCH ×2 (10:09→20:00)
[2022-11-28] MEDS: enoxaparin 40mg/0.4ml syringe SUBCUT SCH ×2 (10:10→20:45)
[2022-11-28] MEDS: LORazepam 2 mg/ml vial IV PRN (11:46)
[2022-11-28 18:00] VITALS: BP 135/64
--- NOTE | 2022-11-28 19:20 | NUR ---
Problems reprioritized. Patient report given, questions answered & plan of care reviewed with CHRIS Kearney.
[2022-11-28 22:00] VITALS: BP 103/65
[2022-11-28] MEDS: traMADol 50MG tablet PO PRN (23:49)
[2022-11-29] MEDS: potassium Cl 20mEq in NS 1,000 ML IV SCH ×2 (00:48→14:29)
[2022-11-29] MEDS: morphine 2 MG/ML inj. syringe IV PRN ×2 (01:56→19:57)
--- NOTE | 2022-11-29 02:52 | NUR ---
Student documentation: I have reviewed and agree with all interventions, assessments performed and documented by Bita, student RN.
[2022-11-29 05:30] VITALS: BP 115/57
[2022-11-29] MEDS: traMADol 50MG tablet PO PRN (05:56)
--- NOTE | 2022-11-29 06:05 | NUR ---
Problems reprioritized. Patient report given, questions answered & plan of care reviewed with CHRIS Andrews.
--- NOTE | 2022-11-29 06:15 | NUR ---
Patient in room [facility] 345. I have received report from CHRIS Kearney and had the opportunity to ask questions and assume patient care.
[2022-11-29] MEDS: LACTOSE-REDUCED FOOD 237ML LIQUID PO SCH ×3 (07:47→18:03)
[2022-11-29 08:10] LABS: BASOPHILS % (AUTO) 0.3 % (0-1); EOSINOPHILS % (AUTO) 0.4 % (0-6); HEMATOCRIT 26.2 % (42.0-52.0); HEMOGLOBIN 8.9 g/dl (14.0-17.9); LYMPHOCYTES # (AUTO) 0.9 X10'3 (1.1-4.8); LYMPHOCYTES % (AUTO) 9.9 % (21-51); MEAN CORPUSCULAR HEMOGLOBIN 31.5 PG (27.0-31.0); MEAN CORPUSCULAR HGB CONC 34.1 g/dL (33.0-36.5); MEAN CORPUSCULAR VOLUME 92.6 FL (78-98); MEAN PLATELET VOLUME 7.3 FL (7.4-10.4); MONOCYTES # (AUTO) 0.5 X10'3 (0-0.9); MONOCYTES % (AUTO) 5.5 % (2-12); NEUTROPHILS % (AUTO) 83.9 % (42-75); PLATELET COUNT 202 X10'3 (140-440); RED BLOOD COUNT 2.83 X10'6 (4.70-6.10); RED CELL DISTRIBUTION WIDTH 13.9 % (11.5-14.5); WHITE BLOOD COUNT 9.5 X10'3 (4.5-11.0)
[2022-11-29 08:50] LABS: ALANINE AMINOTRANSFERASE 25 U/L (12-78); ALBUMIN 2.5 G/DL (3.4-5.0); ALBUMIN/GLOBULIN RATIO 0.8 (1.1-1.5); ALKALINE PHOSPHATASE 93 IU/L (46-116); ANION GAP 4 (8-16); ASPARTATE AMINO TRANSFERASE 21 U/L (10-37); BILIRUBIN,TOTAL 0.7 MG/DL (0.1-1.0); BLOOD UREA NITROGEN 13 MG/DL (7-18); BUN/CREATININE RATIO 20.3 (5.4-32.0); CALCIUM 8.4 MG/DL (8.5-10.1); CHLORIDE 106 MMOL/L (99-107); CREATININE 0.64 MG/DL (0.60-1.10); GLUCOSE 91 MG/DL (70-104); MAGNESIUM 1.9 MG/DL (1.5-2.4); POTASSIUM 3.6 MMOL/L (3.5-5.1); SODIUM 141 MMOL/L (135-145); TOTAL PROTEIN 5.8 G/DL (6.4-8.2); eGFR > 90 ML/MIN
[2022-11-29 10:00] VITALS: BP 136/58
[2022-11-29] MEDS: docusate sod 100mg capsule PO SCH ×2 (11:19→19:52)
[2022-11-29] MEDS: enoxaparin 40mg/0.4ml syringe SUBCUT SCH ×2 (11:28→19:56)
[2022-11-29 11:38] LABS: CLARITY,URINE CLOUDY (Clear); COLOR,URINE YELLOW (Yellow); GLUCOSE, URINE NEGATIVE (Neg); KETONES,URINE NEGATIVE (Neg); LEUKOCYTE ESTERASE ,URINE SMALL (Neg); NITRITES, URINE NEGATIVE (Neg); OCCULT BLOOD,URINE TRACE-INTACT (Neg); PROTEIN,URINE NEGATIVE (Neg)
[2022-11-29 11:52] LABS: UA COLLECTION TYPE NON-SPECIFIED
[2022-11-29 11:53] LABS: BACTERIA,URINE 4+ /HPF (Neg); RBC,URINE 0-2 /HPF (0-2); SQUAMOUS EPITHELIAL CELL,UR FEW /LPF (FEW); YEAST FEW /HPF (NEGATIVE)
[2022-11-29] MEDS: LORazepam 2 mg/ml vial IV PRN (14:58)
--- NOTE | 2022-11-29 15:02 | NUR ---
Reassessment: Pt continues eating poorly, essentially refusing all meals and ONS since last RD assessment (11/26), though pt did consume ~90% of ONS this morning per RN. Noted family does not want an NGT placed per MD note. Per d/w bedside family resource management professor stated pt was eating poorly BUTCHER HEAD since last surgery 11/01. Pt and family seen at bedside to discuss patient's poor nutrition status. Per SO pt has expressed to other family members that he does not want a feeding tube. Per SO pt likes a lot of pepper on his food and prefers his food "dry and burnt". D/w dietary to send extra pepper packets with meals and informed family that we are unable to send burnt and dry food, especially since pt is on an MM5 diet per ST recs. SO agrees that pt has had significantly poor PO intake for at least 3-4 weeks though family believes when pt goes home they will be able to get him eating more by cooking food to his liking and pressuring him to eat. RD discussed calorically dense food to optimize nutrient intake. Per SO pt likes the Ensure despite pt not drinking them. Family provided with ONS coupons and RD contact information and encouraged to reach out if needed. All of family's questions were answered at this time. All information obtained from patient's family was d/w bedside RN. Given prolonged poor PO intake, severe decrease in muscle strength, and mild edema pt meets criteria for severe malnutrition. LBM 11/26, receiving routine bowel care. Will continue to follow closely. Recommendations: 1. Continue regular MM5 diet with thin liquids and a feeder per RN LACTATION CONSULTANT/ recs 2. Ensure Plus High Protein TIDWM; extra pepper with meals per family request 3. Encourage PO intake 4. NO NGTF per pt request per family 5. Routine bowel care 6. Scaled wt this admit; subsequent weekly scaled wts Addendum: 11/29/22 at [address] Amended: Links added.
[2022-11-29 18:00] VITALS: BP 118/77
--- NOTE | 2022-11-29 19:20 | NUR ---
Problems reprioritized. Patient report given, questions answered & plan of care reviewed with CHRIS Amaral.
[2022-11-29 22:00] VITALS: BP 133/62
[2022-11-30] MEDS: morphine 2 MG/ML inj. syringe IV PRN ×3 (02:14→15:09)
[2022-11-30] MEDS: potassium Cl 20mEq in NS 1,000 ML IV SCH (02:21)
[2022-11-30] MEDS: LORazepam 2 mg/ml vial IV PRN ×4 (04:45→22:04)
[2022-11-30 05:30] VITALS: BP 135/59
--- NOTE | 2022-11-30 06:20 | NUR ---
Problems reprioritized. Patient report given, questions answered & plan of care reviewed with Juliana PEREZ. Addendum: 11/30/22 at 0620 by Cristin Perea RN Amended: Links added.
[2022-11-30 06:45] LABS: BASOPHILS % (AUTO) 0.1 % (0-1); EOSINOPHILS # (AUTO) 0.1 X10'3 (0-0.9); EOSINOPHILS % (AUTO) 1.2 % (0-6); HEMATOCRIT 27.1 % (42.0-52.0); HEMOGLOBIN 8.9 g/dl (14.0-17.9); LYMPHOCYTES # (AUTO) 0.6 X10'3 (1.1-4.8); LYMPHOCYTES % (AUTO) 8.3 % (21-51); MEAN CORPUSCULAR HEMOGLOBIN 30.9 PG (27.0-31.0); MEAN CORPUSCULAR HGB CONC 32.9 g/dL (33.0-36.5); MEAN CORPUSCULAR VOLUME 94.1 FL (78-98); MONOCYTES # (AUTO) 0.4 X10'3 (0-0.9); MONOCYTES % (AUTO) 5.5 % (2-12); NEUTROPHILS # (AUTO) 6.2 X10'3 (1.8-7.7); NEUTROPHILS % (AUTO) 84.9 % (42-75); PLATELET COUNT 215 X10'3 (140-440); RED BLOOD COUNT 2.88 X10'6 (4.70-6.10); RED CELL DISTRIBUTION WIDTH 14.7 % (11.5-14.5); WHITE BLOOD COUNT 7.3 X10'3 (4.5-11.0)
--- NOTE | 2022-11-30 06:50 | NUR ---
Patient in room [facility] 345. I have received report from CHRIS Amaral and had the opportunity to ask questions and assume patient care.
[2022-11-30 07:01] LABS: ALANINE AMINOTRANSFERASE 21 U/L (12-78); ALBUMIN 2.4 G/DL (3.4-5.0); ALBUMIN/GLOBULIN RATIO 0.7 (1.1-1.5); ALKALINE PHOSPHATASE 91 IU/L (46-116); ANION GAP 5 (8-16); ASPARTATE AMINO TRANSFERASE 15 U/L (10-37); BILIRUBIN,TOTAL 0.7 MG/DL (0.1-1.0); BLOOD UREA NITROGEN 9 MG/DL (7-18); BUN/CREATININE RATIO 15.5 (5.4-32.0); CALCIUM 8.3 MG/DL (8.5-10.1); CHLORIDE 108 MMOL/L (99-107); CREATININE 0.58 MG/DL (0.60-1.10); GLUCOSE 79 MG/DL (70-104); MAGNESIUM 1.8 MG/DL (1.5-2.4); POTASSIUM 3.7 MMOL/L (3.5-5.1); SODIUM 144 MMOL/L (135-145); TOTAL CARBON DIOXIDE 30.7 MMOL/L (24-32); TOTAL PROTEIN 5.7 G/DL (6.4-8.2); eGFR > 90 ML/MIN
[2022-11-30] MEDS: LACTOSE-REDUCED FOOD 237ML LIQUID PO SCH ×3 (07:26→18:00)
[2022-11-30 10:00] VITALS: BP 147/73
[2022-11-30] MEDS: docusate sod 100mg capsule PO SCH ×2 (10:26→20:00)
[2022-11-30] MEDS: enoxaparin 40mg/0.4ml syringe SUBCUT SCH ×2 (10:36→22:09)
[2022-11-30 18:00] VITALS: BP 136/58
--- NOTE | 2022-11-30 18:50 | NUR ---
Problems reprioritized. Patient report given, questions answered & plan of care reviewed with CHRIS Rendon.
--- NOTE | 2022-11-30 18:50 | NUR ---
Patient in room [facility] 345. I have received report from Juliana PEREZ and had the opportunity to ask questions and assume patient care.
[2022-11-30] MEDS ORDERED: magnesium hydroxide 30ml (MOM) UD suspension PO PRN (20:45)
[2022-11-30] MEDS ORDERED: loratadine 10mg tablet PO PRN (20:45)
[2022-11-30 22:00] VITALS: BP 144/70
[2022-12-01] MEDS: potassium Cl 20mEq in NS 1,000 ML IV SCH (03:05)
[2022-12-01] MEDS: LORazepam 2 mg/ml vial IV PRN (05:03)
[2022-12-01 06:08] LABS: BASOPHILS % (AUTO) 0 % (0-1); EOSINOPHILS % (AUTO) 0.5 % (0-6); HEMATOCRIT 27.7 % (42.0-52.0); HEMOGLOBIN 9.3 g/dl (14.0-17.9); LYMPHOCYTES # (AUTO) 0.5 X10'3 (1.1-4.8); LYMPHOCYTES % (AUTO) 5.6 % (21-51); MEAN CORPUSCULAR HEMOGLOBIN 31.1 PG (27.0-31.0); MEAN CORPUSCULAR HGB CONC 33.5 g/dL (33.0-36.5); MEAN PLATELET VOLUME 6.9 FL (7.4-10.4); MONOCYTES # (AUTO) 0.4 X10'3 (0-0.9); MONOCYTES % (AUTO) 5.4 % (2-12); NEUTROPHILS # (AUTO) 7.3 X10'3 (1.8-7.7); NEUTROPHILS % (AUTO) 88.5 % (42-75); PLATELET COUNT 210 X10'3 (140-440); RED BLOOD COUNT 2.98 X10'6 (4.70-6.10); RED CELL DISTRIBUTION WIDTH 15.1 % (11.5-14.5); WHITE BLOOD COUNT 8.2 X10'3 (4.5-11.0)
[2022-12-01 06:21] LABS: ALANINE AMINOTRANSFERASE 20 U/L (12-78); ALBUMIN 2.4 G/DL (3.4-5.0); ALBUMIN/GLOBULIN RATIO 0.8 (1.1-1.5); ALKALINE PHOSPHATASE 89 IU/L (46-116); ANION GAP 6 (8-16); ASPARTATE AMINO TRANSFERASE 13 U/L (10-37); BILIRUBIN,TOTAL 1.1 MG/DL (0.1-1.0); BLOOD UREA NITROGEN 8 MG/DL (7-18); BUN/CREATININE RATIO 12.3 (5.4-32.0); CALCIUM 8.1 MG/DL (8.5-10.1); CHLORIDE 104 MMOL/L (99-107); CREATININE 0.65 MG/DL (0.60-1.10); GLUCOSE 79 MG/DL (70-104); MAGNESIUM 1.6 MG/DL (1.5-2.4); POTASSIUM 3.2 MMOL/L (3.5-5.1); SODIUM 140 MMOL/L (135-145); TOTAL CARBON DIOXIDE 29.6 MMOL/L (24-32); TOTAL PROTEIN 5.6 G/DL (6.4-8.2); eGFR > 90 ML/MIN
--- NOTE | 2022-12-01 06:50 | NUR ---
Patient report given to Mary ESPINOZA
[2022-12-01] MEDS: LACTOSE-REDUCED FOOD 237ML LIQUID PO SCH (08:00)
[2022-12-01] MEDS: docusate sod 100mg capsule PO SCH (08:09)
[2022-12-01] MEDS: enoxaparin 40mg/0.4ml syringe SUBCUT SCH (08:11)
--- NOTE | 2022-12-01 12:16 | NUR ---
Text to Dr. Montesinos - Message: RE: [id number] Arvin, W Pt is to be picked up at 1230 by transporter to go home. DC'g in [address] is needed if this is still the plan. Thank you much, Kailee [phone]
--- NOTE | 2022-12-01 12:30 | NUR ---
IV removed from patient. Area covered with gauze and tape. No bleeding. Discharge paper work and education provided to family. All paper work signed by patients . Medications sent to pharmacy. Transported by [facility] to patients residence.
[2022-12-01] MEDS ORDERED: TRAM50TA2 PO (12:32)
--- NOTE | 2022-12-01 13:00 | NUR ---
I have reviewed and agree with interventions, assessments,and documentation by OLGA Hernandez.
== END 2022-12-01 13:05 | disposition hospice, home (50) | DRG 466 ==
LOC: ER 05:37 → ED HOLD 11:33 → SUR 3N 14:38
PROVIDERS: ADMIT Internal Medicine; ATTEND Internal Medicine
PROC: 0SPB0JZ Removal of Synthetic Substitute from Left Hip Joint, Open Approach (ICD-10-PCS; 2022-11-20)
PROC: 0SHB04Z Insertion of Internal Fixation Device into Left Hip Joint, Open Approach (ICD-10-PCS; 2022-11-20)
PROC: 0SRB069 Replacement of Left Hip Joint with Oxidized Zirconium on Polyethylene Synthetic Substitute, Cemented, Open Approach (ICD-10-PCS; principal; 2022-11-20 13:04)
DX: T84.021A Dislocation of internal left hip prosthesis, initial encounter (principal); S72.002A Fracture of unspecified part of neck of left femur, initial encounter for closed fracture; U07.1 COVID-19; D62 Acute posthemorrhagic anemia; F03.911 Unspecified dementia, unspecified severity, with agitation; R65.10 Systemic inflammatory response syndrome (SIRS) of non-infectious origin without acute organ dysfunction; D50.9 Iron deficiency anemia, unspecified; Z66 Do not resuscitate; W18.39XA Other fall on same level, initial encounter; R29.6 Repeated falls; D63.8 Anemia in other chronic diseases classified elsewhere; E78.00 Pure hypercholesterolemia, unspecified; K59.00 Constipation, unspecified; Y79.2 Prosthetic and other implants, materials and accessory orthopedic devices associated with adverse incidents; Y92.89 Other specified places as the place of occurrence of the external cause; Z78.9 Other specified health status; Z88.6 Allergy status to analgesic agent; Z79.899 Other long term (current) drug therapy; Y93.89 Activity, other specified; Y99.8 Other external cause status; Z79.82 Long term (current) use of aspirin
CPT/HCPCS: 27265; 36415; 71045; 72170; 73502; 74018; 80048; 80053; 81001; 81003; 82948; 83540; 83550; 83735; 83880; 85025; 85379; 85610; 85730; 86140; 87077; 87088; 87186; 87635; 92508; 92616; 93005; 94760; 97110; 97161; 97530; 97535; 99152; 99153; 99285; A4346; A4349; A4615; A5200; A6213; A6449; A7000; A9272; C1713; C1776; C9803; G0378; J0171; J0690; J0735; J1100; J1650; J1756; J1885; J2060; J2270; J2405; J2704; J2795; J3010; J3370; J3480; J3490; J7030; J7040; J7042; J7050; J7060; J7120